=== PATIENT | female | born 1965 | race Caucasian/White ===

== ENCOUNTER 2023-07-19 17:06 | Emergency (ER) | payer SELFPAY ==
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
[2023-07-19 17:26] VITALS: BP 108/80; PULSE 96; O2SAT 98; BMI 25.0
[2023-07-19 17:39] VITALS: BP 103/56; PULSE 85; O2SAT 97
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
[2023-07-19 18:45] LABS: MANUAL DIFF FLAG NO
[2023-07-19 18:54] LABS: Basophils Percent Auto 0.6 % (0-2); Eosinophils Absolute Auto 0.1 X10*3/uL (0.0-0.4); Eosinophils Percent Auto 2.3 % (0-4); Hematocrit 36.6 % (37.0-47.0); Hemoglobin 11.9 g/dl (12.0-16.0); Imm Gran Abs Auto 0.02 X10*3/uL (0.00-0.03); Imm Gran Pct Auto 0.4 % (0.0-0.4); Lymphocytes Absolute Auto 1.7 X10*3/uL (1.2-4.9); Lymphocytes Percent Auto 35.6 % (20-40); Mean Corpuscular HGB Conc 32.5 g/dl (31.0-35.0); Mean Corpuscular Hemoglobin 31.4 pg (27.0-33.0); Mean Corpuscular Volume 96.6 fL (80.0-98.0); Mean Platelet Volume 11.7 fL (9.4-12.3); Monocytes Absolute Auto 0.4 X10*3/uL (0.1-1.2); Neutrophils Absolute Auto 2.5 x10*3/uL (2.0-8.3); Neutrophils Percent Auto 53.1 % (45-73); Platelet Count 155 X10*3/uL (160-400); Red Blood Count 3.79 X10*6/uL (4.20-5.50); Red Cell Distribution Width 12.9 % (11.0-16.0); White Blood Count 4.8 X10*3/uL (4.8-10.8)
[2023-07-19] MEDS: ondansetron HCL 4 MG/2 ML VIAL IVPUSH (19:02)
[2023-07-19] MEDS: Morphine Sulfate 4 MG/ML CARTRIDGE IVPUSH (19:02)
[2023-07-19 19:03] LABS: Anion Gap 11 (12-20); Blood Urea Nitrogen 6 mg/dL (9-16); Calcium 8.9 mg/dL (8.4-10.2); Carbon Dioxide 27 mmol/L (22-29); Chloride 106 mmol/L (96-108); Creatinine Clr Calc Pharmacy 77.5; Estimated Glomerular Filt Rate > 60; Glucose Random 86 mg/dL (60-115); Potassium 3.6 mmol/L (3.3-5.1); Sodium 140 mmol/L (135-145)
[2023-07-19] MEDS: iohexoL 350 MG/ML 100 ML INFUS..BTL IV (20:09)
[2023-07-19] MEDS: Ketorolac Tromethamine 30 MG/ML VIAL IVPUSH (22:42)
[2023-07-19 22:52] VITALS: BP 96/51; PULSE 86; RESP 18; TEMP 36.9; O2SAT 95
== END 2023-07-19 22:53 | disposition home or self-care (01) ==
PROVIDERS: Emergency Provider Internal Medicine
DX: Z04.1 Encounter for examination and observation following transport accident (principal); R07.89 Other chest pain
CPT/HCPCS: 36415; 71260; 72125; 80048; 85025; 96374; 96375; 99284; J1885; J2270; J2405; Q9967